=== PATIENT | female | born 2000 | race Asian ===

== ENCOUNTER 2018-07-01 21:53 | Emergency (ER) | payer OTHER ==
[2018-07-01 21:59] VITALS: BP 115/81
--- NOTE | 2018-07-01 22:16 | EDPHY ---
H & P Stated Complaint: Pt cut off distal tip of L middle finger with paper rewinder operator. [place] UTD Time Seen by Provider: 07/01/18 21:56 HPI/ROS: HPI The patient presents with left middle finger tip avulsion injury which occurred about 20 min prior to arrival while she was using a paper rewinder operator. She has had bleeding. She cut the distal part of her nail. She denies any numbness or tingling.. REVIEW OF SYSTEMS 10 systems were reviewed and negative with the exception of the elements mentioned in the history of present illness. PMHx: Healthy Soc Hx: [employer] student, works as an RA, likes [employer] General Appearance: Alert, no distress Respiratory: Breathing comfortably Neurological: A&O, moves all extremities Skin: Warm and dry, no rashes Extremities: Left middle finger with 1 cm soft tissue avulsion at the tip involving the most distal nail bed, active bleeding is present, no bone is exposed, patient has full range of motion of the digit Psychiatric: Patient is oriented X 3, there is no agitation Source: Patient Exam Limitations: No limitations - Personal History LMP (Females 10-55): 22-28 Days Ago Current Tetanus/Diphtheria Vaccine: Yes Current Tetanus Diphtheria and Acellular Pertussis (TDAP): Yes - Medical/Surgical History Hx Asthma: No Hx Chronic Respiratory Disease: No Hx Diabetes: No Hx Cardiac Disease: No Hx Renal Disease: No Hx Cirrhosis: No Hx Alcoholism: No Hx HIV/AIDS: No Hx Splenectomy or Spleen Trauma: No Other PMH: denies - Social History Smoking Status: Never smoked Constitutional: Initial Vital Signs Temperature (C) 36.6 C 07/01/18 21:56 Heart Rate 103 H 07/01/18 21:56 Respiratory Rate 20 07/01/18 21:56 Blood Pressure 115/81 H 07/01/18 21:56 O2 Sat (%) 100 07/01/18 21:56 O2 Delivery Mode Room Air Allergies/Adverse Reactions: No Known Allergies Allergy (Unverified 07/01/18 21:54) Home Medications: Medication Instructions Recorded NK [No Known Home Meds] 07/01/18 Medical Decision Making Procedures: LACERATION REPAIR Procedure: Laceration repair. Verbal consent was obtained from the patient. The avulsion injury of the left middle finger was soaked in lidocaine 1% with epinephrine for 20 min. Hemostasis was achieved and the patient had minimal pain. Tourniquet was placed on proximal finger for approximately 5 min during the procedure. Using Dermabond I repaired the avulsion injury. There was no ongoing bleeding. Patient tolerated procedure well with no immediate complication. The wound repair was simple. The procedure was performed by myself. Differential Diagnosis: 17-year-old female with a finger tip avulsion of left middle finger, 20 min prior to arrival. Plan for repair here. No involvement of tendons or bone. Departure - Departure Disposition: Home, Routine, Self-Care Clinical Impression: Fingertip avulsion Qualifiers: Encounter type: initial encounter Qualified Code(s): S61.209A - Unspecified open wound of unspecified finger without damage to nail, initial encounter Condition: Good Instructions: Skin Avulsion (ED) Additional Instructions: Please keep this dressing on for the next 24 hr. Then, you can take it off and wash her hand. You should try to have a dressing on your finger for most of the time. Referrals: JESSICA Burgos,. [Clinic] - As per Instructions
[2018-07-01] MEDS ORDERED: SKIN ADHESIVE (DERMABOND) 1 EACH TP ONE (22:23)
[2018-07-01] MEDS ORDERED: DERMABOND TP ONE (22:36)
== END 2018-07-01 22:46 | disposition home or self-care (01) ==
PROC: 0HQGXZZ Repair Left Hand Skin, External Approach (ICD-10-PCS; principal; 2018-07-01)
DX: S61.203A Unspecified open wound of left middle finger without damage to nail, initial encounter (principal); W27.5XXA Contact with paper-cutter, initial encounter; Y92.9 Unspecified place or not applicable; Y93.9 Activity, unspecified; Y99.9 Unspecified external cause status